=== PATIENT | female | born 1950 | race Caucasian/White ===

== ENCOUNTER 2017-09-20 09:20 | Emergency (ER) | payer MEDICARE, OTHER ==
[2017-09-20 09:49] VITALS: BP 174/76
[2017-09-20] MEDS ORDERED: Doxycycline 100 MG Cap PO ONE (10:07)
--- NOTE | 2017-09-20 10:10 | EDM.PDOC ---
ED HPI GENERAL MEDICAL PROBLEM - General Chief Complaint: Skin Complaint Stated Complaint: TICK BITE Time Seen by Provider: 09/20/17 10:00 Source of Information: Reports: Patient History Limitations: Reports: No Limitations - History of Present Illness INITIAL COMMENTS - FREE TEXT/NARRATIVE: 67-year-old female pulled a tick off of her left anterior shoulder this morning , put the tick in a bag and came in to be checked. No symptoms. 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: Musculoskeletal History: Reports: Arthritis Endocrine/Metabolic History: Reports: Diabetes, Type II - Infectious Disease History Infectious Disease History: Reports: Chicken Pox, Measles, Mumps - Past Surgical History Musculoskeletal Surgical History: Reports: None Social & Family History - Family History Family Medical History: Noncontributory - Tobacco Use Smoking Status *Q: Current Every Day Smoker Years of Tobacco use: 40 Packs/Tins Daily: 1 - Caffeine Use Caffeine Use: Reports: Coffee - Recreational Drug Use Recreational Drug Use: No ED ROS GENERAL - Review of Systems Review Of Systems: See Below Constitutional: Denies: Fever, Chills Respiratory: Denies: Shortness of Breath Cardiovascular: Denies: Chest Pain GI/Abdominal: Denies: Abdominal Pain Skin: Reports: Other (Small sore spot on the left anterior shoulder) ED EXAM, SKIN/RASH Exam: See Below Exam Limited By: No Limitations General Appearance: Alert, No Apparent Distress Respiratory/Chest: No Respiratory Distress Neurological: Alert, Oriented Psychiatric: Normal Affect, Normal Mood Skin: Warm, Dry, Other (Patient has a small round erythematous spot on the anterior left shoulder about 1 cm across.) Course - Vital Signs Last Recorded V/S: Last Vital Signs Temp 96.6 F 09/20/17 09:46 Pulse 74 09/20/17 09:46 Resp 15 09/20/17 09:46 BP 174/76 H 09/20/17 09:46 Pulse Ox 97 09/20/17 09:46 - Orders/Labs/Meds Meds: Medications Discontinued Medications Generic Name Dose Route Start Last Admin Trade Name Rachel PRN Reason Stop Dose Admin Doxycycline Hyclate 200 mg 09/20/17 10:07 09/20/17 10:12 Vibramycin PO 09/20/17 10:08 200 mg ONETIME ONE Administration - Re-Assessments/Exams Free Text/Narrative Re-Assessment/Exam: 09/20/17 10:09 Patient was given one 200 mg of oral doxycycline and reassured. She can return as needed. Departure - Departure Time of Disposition: 10:19 Disposition: Home, Self-Care 01 Condition: Good Clinical Impression: Tick bite of left shoulder Qualifiers: Encounter type: initial encounter Qualified Code(s): S40.262A - Insect bite ( nonvenomous) of left shoulder, initial encounter - Discharge Information Instructions: Tick Bite Information, Adult, [id number] Referrals: Moshe Foster MD [Primary Care Provider] - Forms: ED Department Discharge Care Plan Goals: Keep bite area clean while healing, and recheck if concerns such as fever or joint pains in the next few weeks.
== END 2017-09-20 10:20 | disposition home or self-care (01) ==
LOC: JP.ED 09:20
DX: S40.262A Insect bite (nonvenomous) of left shoulder, initial encounter (principal); F17.210 Nicotine dependence, cigarettes, uncomplicated; E11.9 Type 2 diabetes mellitus without complications; Z88.8 Allergy status to other drugs, medicaments and biological substances; W57.XXXA Bitten or stung by nonvenomous insect and other nonvenomous arthropods, initial encounter
CPT/HCPCS: 99283; A9270

== ENCOUNTER 2017-12-15 18:25 | Emergency (ER) | payer MEDICARE, OTHER ==
--- NOTE | 2017-12-15 19:25 | EDM.PDOC ---
ED HPI GENERAL MEDICAL PROBLEM - General Chief Complaint: Back Pain or Injury Stated Complaint: PAIN IN LEFT ARM AND LEFT SIDE Time Seen by Provider: 12/15/17 19:23 Source of Information: Reports: Patient, Family History Limitations: Reports: No Limitations - History of Present Illness INITIAL COMMENTS - FREE TEXT/NARRATIVE: pt woke up with pain her rt shoulder blade area and she now has pain in the epigastric area. She has eaten less but she has eaten. 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: Musculoskeletal History: Reports: Arthritis Endocrine/Metabolic History: Reports: Diabetes, Type II - Infectious Disease History Infectious Disease History: Reports: Chicken Pox, Measles, Mumps - Past Surgical History Musculoskeletal Surgical History: Reports: None Social & Family History - Family History Family Medical History: Noncontributory - Tobacco Use Smoking Status *Q: Current Every Day Smoker Years of Tobacco use: 40 Packs/Tins Daily: 1 - Caffeine Use Caffeine Use: Reports: Coffee - Recreational Drug Use Recreational Drug Use: No ED ROS GENERAL - Review of Systems Review Of Systems: See Below Constitutional: Reports: No Symptoms HEENT: Reports: No Symptoms Respiratory: Reports: No Symptoms Cardiovascular: Reports: No Symptoms, Other (chest pressure from thje pain in her stomach. ) Endocrine: Reports: No Symptoms GI/Abdominal: Reports: Abdominal Pain, Other (Pain in the upper abdman. ) : Reports: No Symptoms Musculoskeletal: Reports: No Symptoms Skin: Reports: No Symptoms ED EXAM, UPPER BACK/NECK PAIN - Physical Exam Exam: See Below Text/Narrative:: pt arrived with a history of rt shoulder and back opain this am. She then developed acute pain in the epiggastric area. She has not vomited. Her appetite is down Exam Limited By: No Limitations General Appearance: Alert, Moderate Distress Ears Exam: Normal TMs Nose Exam: Normal Inspection Throat/Mouth Exam: Normal Inspection Head Exam: Atraumatic Neck Exam: Non-Tender Cardiovascular/Respiratory: Regular Rate, Rhythm, Other ( ekg was normal. No actual chest pain. ) GI/Abdominal: Tender, Other (pt has a soft abdoman with epigastric tenderness. ) (Female) Exam: Deferred Rectal (Female) Exam: Normal Exam Back Exam: Normal Inspection Extremities: Normal Inspection Neurologic: Alert Course - Vital Signs Last Recorded V/S: Last Vital Signs Temp 36.3 C 12/15/17 18:55 Pulse 71 12/15/17 20:37 Resp 18 12/15/17 20:37 BP 167/76 H 12/15/17 20:37 Pulse Ox 100 12/15/17 20:37 - Orders/Labs/Meds Orders: Active Orders 24 hr Category Date Time Status Abdomen Ltd [US] Stat Exams 12/15/17 19:46 Taken UA W/MICROSCOPIC [URIN] Urgent Lab 12/15/17 19:38 Ordered Famotidine [Pepcid] Med 12/15/17 21:41 Once 20 mg PO ONETIME ONE Medication Orders Famotidine (Pepcid) 20 mg PO ONETIME ONE Stop: 12/15/17 21:42 Labs: Laboratory Tests 12/15/17 12/15/17 12/15/17 Range/Units 19:21 19:21 19:21 WBC 10.0 (4.5-11.0) K/uL RBC 4.57 (3.30-5.50) M/uL Hgb 13.1 (12.0-15.0) g/dL Hct 38.7 (36.0-48.0) % MCV 85 (80-98) fL MCH 29 (27-31) pg MCHC 34 (32-36) % Plt Count 309 (150-400) K/uL Neut % (Auto) 62 (36-66) % Lymph % (Auto) 27 (24-44) % Angelina % (Auto) 9 H (2-6) % Eos % (Auto) 2 (2-4) % Baso % (Auto) 1 (0-1) % Sodium 137 L (140-148) mmol/L Potassium 3.2 L (3.6-5.2) mmol/L Chloride 99 L (100-108) mmol/L Carbon Dioxide 27 (21-32) mmol/L Anion Gap 14.2 H (5.0-14.0) mmol/L BUN 12 (7-18) mg/dL Creatinine 0.7 (0.6-1.0) mg/dL Est Cr Clr Drug Dosing 61.09 mL/min Estimated GFR (MDRD) > 60 (>60) Glucose 182 H (74-106) mg/dL Calcium 9.5 (8.5-10.1) mg/dL Total Bilirubin 0.3 (0.2-1.0) mg/dL AST 15 (15-37) U/L ALT 21 (12-78) U/L Alkaline Phosphatase 77 (46-116) U/L Troponin I (0.000-0.056) ng/mL C-Reactive Protein 1.08 H (0.0-0.3) mg/dL Total Protein 7.4 (6.4-8.2) g/dL Albumin 3.3 L (3.4-5.0) g/dL Globulin 4.1 H (2.3-3.5) g/dL Albumin/Globulin Ratio 0.8 L (1.2-2.2) Lipase (73-393) U/L Urine Color Urine Appearance Urine pH (4.5-8.0) Ur Specific [place] (1.008-1.030) Urine Protein (NEGATIVE) mg/dL Urine Glucose (UA) (NEGATIVE) mg/dL Urine Ketones (NEGATIVE) mg/dL Urine Occult Blood (NEGATIVE) Urine Nitrite (NEGATIVE) Urine Bilirubin (NEGATIVE) Urine Urobilinogen (NORMAL) mg/dL Ur Leukocyte Esterase (NEGATIVE) Urine RBC (0-5) Urine WBC (0-5) Ur Epithelial Cells Amorphous Sediment Urine Bacteria Urine Mucus 12/15/17 12/15/17 Range/Units 19:21 19:38 WBC (4.5-11.0) K/uL RBC (3.30-5.50) M/uL Hgb (12.0-15.0) g/dL Hct (36.0-48.0) % MCV (80-98) fL MCH (27-31) pg MCHC (32-36) % Plt Count (150-400) K/uL Neut % (Auto) (36-66) % Lymph % (Auto) (24-44) % Angelina % (Auto) (2-6) % Eos % (Auto) (2-4) % Baso % (Auto) (0-1) % Sodium (140-148) mmol/L Potassium (3.6-5.2) mmol/L Chloride (100-108) mmol/L Carbon Dioxide (21-32) mmol/L Anion Gap (5.0-14.0) mmol/L BUN (7-18) mg/dL Creatinine (0.6-1.0) mg/dL Est Cr Clr Drug Dosing mL/min Estimated GFR (MDRD) (>60) Glucose (74-106) mg/dL Calcium (8.5-10.1) mg/dL Total Bilirubin (0.2-1.0) mg/dL AST (15-37) U/L ALT (12-78) U/L Alkaline Phosphatase (46-116) U/L Troponin I < 0.017 (0.000-0.056) ng/mL C-Reactive Protein (0.0-0.3) mg/dL Total Protein (6.4-8.2) g/dL Albumin (3.4-5.0) g/dL Globulin (2.3-3.5) g/dL Albumin/Globulin Ratio (1.2-2.2) Lipase 87 (73-393) U/L Urine Color Yellow Urine Appearance Clear Urine pH 6.0 (4.5-8.0) Ur Specific [place] 1.010 (1.008-1.030) Urine Protein Negative (NEGATIVE) mg/dL Urine Glucose (UA) Normal (NEGATIVE) mg/dL Urine Ketones Negative (NEGATIVE) mg/dL Urine Occult Blood Moderate (NEGATIVE) Urine Nitrite Negative (NEGATIVE) Urine Bilirubin Negative (NEGATIVE) Urine Urobilinogen Normal (NORMAL) mg/dL Ur Leukocyte Esterase Negative (NEGATIVE) Urine RBC 0-5 (0-5) Urine WBC 0-5 (0-5) Ur Epithelial Cells Rare Amorphous Sediment Not seen Urine Bacteria Not seen Urine Mucus Not seen Meds: Medications Generic Name Dose Route Start Last Admin Trade Name Freq PRN Reason Stop Dose Admin Famotidine 20 mg 12/15/17 21:41 Pepcid PO 12/15/17 21:42 ONETIME ONE Discontinued Medications Generic Name Dose Route Start Last Admin Trade Name Freq PRN Reason Stop Dose Admin Al Hydroxide/Mg Hydroxide 15 0 ml 12/15/17 20:37 12/15/17 20:45 ml/ Lidocaine HCl 15 ml PO 12/15/17 20:38 15 ml ONETIME ONE Administration - Re-Assessments/Exams Free Text/Narrative Re-Assessment/Exam: 12/15/17 21:45 pt was found to have alot of stones in her GB. Her Gb wall is thickened. She did respond to the GI cocktail and felt better. Departure - Departure Time of Disposition: 21:46 Disposition: Home, Self-Care 01 Condition: Fair Clinical Impression: Cholelithiasis, Gastrointestinal irritation - Discharge Information Referrals: Moshe Foster MD [Primary Care Provider] - Forms: ED Department Discharge Care Plan Goals: rtc Wednesday for a hiada scan, prilosec 20mg daily Appt with surgeon wed or of next week. - My Orders Last 24 Hours: My Active Orders 12/15/17 19:38 UA W/MICROSCOPIC [URIN] Urgent 12/15/17 19:46 Abdomen Ltd [US] Stat 12/15/17 21:41 Famotidine [Pepcid] 20 mg PO ONETIME ONE - Assessment/Plan Last 24 Hours: My Active Orders 12/15/17 19:38 UA W/MICROSCOPIC [URIN] Urgent 12/15/17 19:46 Abdomen Ltd [US] Stat 12/15/17 21:41 Famotidine [Pepcid] 20 mg PO ONETIME ONE
[2017-12-15] MEDS ORDERED: Alum Hydrox/Mag Hydrox/Simeth 15 ML, Lidocaine 2% 15 ML PO ONE ×2 (20:37)
[2017-12-15 20:38] VITALS: BP 167/76
[2017-12-15] MEDS ORDERED: Famotidine 20 MG Tab PO ONE (21:41)
== END 2017-12-15 21:58 | disposition home or self-care (01) ==
LOC: JP.ED 18:25
DX: K80.20 Calculus of gallbladder without cholecystitis without obstruction (principal); K92.89 Other specified diseases of the digestive system; E11.9 Type 2 diabetes mellitus without complications; F17.210 Nicotine dependence, cigarettes, uncomplicated; Z88.8 Allergy status to other drugs, medicaments and biological substances
CPT/HCPCS: 36415; 76705; 80053; 81001; 83690; 84484; 85025; 86140; 99284; A9270

== ENCOUNTER 2018-08-14 09:29 | Emergency (ER) | payer MEDICARE, OTHER ==
[2018-08-14 09:43] VITALS: BP 184/73
--- NOTE | 2018-08-14 10:49 | CRLCR ---
INDICATION: Trauma with pain, fall on outstretched hand. TECHNIQUE: Four views of the left wrist. COMPARISON: None FINDINGS: There is a subtle minimally displaced triquetral avulsion type fracture with no other fracture or malalignment seen. Associated soft tissue swelling is present overlying the dorsal aspect of the wrist. IMPRESSION: Acute minimally displaced triquetral avulsion-type fracture with associated soft tissue swelling overlying the dorsal wrist. Dictated by Moshe Patterson MD @ Aug 14 2018 10:42AM Signed by Dr. Moshe Patterson @ Aug 14 2018 10:47AM
--- NOTE | 2018-08-14 11:16 | EDM.PDOC ---
ED HPI GENERAL MEDICAL PROBLEM - General Chief Complaint: Upper Extremity Injury/Pain Stated Complaint: LEFT WRIST INJURY Time Seen by Provider: 08/14/18 10:05 Source of Information: Reports: Patient History Limitations: Reports: No Limitations - History of Present Illness INITIAL COMMENTS - FREE TEXT/NARRATIVE: This lady fell on her outstretched left hand just a short while ago. It hurts all over the left wrist but most intense pain is in the area of the pisiform bone. 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: Musculoskeletal History: Reports: Arthritis Endocrine/Metabolic History: Reports: Diabetes, Type II - Infectious Disease History Infectious Disease History: Reports: Chicken Pox, Measles, Mumps - Past Surgical History Head Surgeries/Procedures: Reports: None HEENT Surgical History: Reports: None Cardiovascular Surgical History: Reports: None GI Surgical History: Reports: Cholecystectomy Endocrine Surgical History: Reports: None Musculoskeletal Surgical History: Reports: None Dermatological Surgical History: Reports: None Social & Family History - Family History Family Medical History: Noncontributory - Tobacco Use Smoking Status *Q: Current Every Day Smoker Years of Tobacco use: 40 Packs/Tins Daily: 1 Used Tobacco, but Quit: No Second Hand Smoke Exposure: No - Caffeine Use Caffeine Use: Reports: Coffee - Alcohol Use Days Per Week of Alcohol Use: 1 Number of Drinks Per Day: 2 Total Drinks Per Week: 2 - Recreational Drug Use Recreational Drug Use: No Review of Systems - Review of Systems Review Of Systems: ROS reveals no pertinent complaints other than HPI. ED EXAM, GENERAL - Physical Exam Exam: See Below Exam Limited By: No Limitations General Appearance: Alert, WD/WN, Mild Distress Extremities: Other (Generalized swelling of the wrist. Full range of motion of the fingers limited range of motion of the wrist and she does have point tenderness over the pisiform.) Course - Vital Signs Last Recorded V/S: Last Vital Signs Temp 35.8 C 08/14/18 09:44 Pulse 81 08/14/18 09:44 Resp 16 08/14/18 09:44 BP 184/73 H 08/14/18 09:44 Pulse Ox 95 08/14/18 09:44 - Radiology Interpretation Free Text/Narrative:: X-ray shows a small minimally displaced avulsion type fracture of the triquetrum Departure - Departure Time of Disposition: 11:13 Disposition: Home, Self-Care 01 Condition: Fair Clinical Impression: Fracture of triquetrum of left wrist - Discharge Information Referrals: Moshe Foster MD [Primary Care Provider] - Additional Instructions: This fracture is what is called an avulsion fracture it's where the tendon pulled loose and takes a little tiny piece of bone with it. It is similar to a sprain. It will need to be in a cast but right now until you see the orthopedist next week a splint will be just fine. You should keep it elevated as much as possible and apply ice. If needed you may use the Narco 5/325 (12 tablets) one or 2 every 4 hours. Each tablet contains 325 mg of Tylenol. If you decide to take some regular Tylenol along with this you should limit yourself to a total of 4000 mg per day of Tylenol. The Narco contains hydrocodone which is some mild narcotic. It can cause sedation that could lead to falls it could impair driving or operating machinery. It can be addictive if abused
== END 2018-08-14 11:32 | disposition home or self-care (01) ==
LOC: JP.ED 09:29
DX: S62.112A Displaced fracture of triquetrum [cuneiform] bone, left wrist, initial encounter for closed fracture (principal); F17.210 Nicotine dependence, cigarettes, uncomplicated; V91.29XA Fall due to collision between unspecified watercraft and other watercraft or other object, initial encounter; Z88.8 Allergy status to other drugs, medicaments and biological substances
CPT/HCPCS: 73110-LT; 99283; 99283-25

== ENCOUNTER 2020-08-05 18:33 | Emergency (ER) | payer MEDICARE, OTHER ==
[2020-08-05] MEDS ORDERED: amLODIPine 5 MG Tab PO ONE (19:20)
--- NOTE | 2020-08-05 19:29 | EDM.PDOC ---
ED HPI GENERAL MEDICAL PROBLEM - General Chief Complaint: Cardiovascular Problem Stated Complaint: HIGH BLOOD PRESSURE Time Seen by Provider: 08/05/20 19:03 Source of Information: Reports: Patient History Limitations: Reports: No Limitations - History of Present Illness INITIAL COMMENTS - FREE TEXT/NARRATIVE: Patient presents to the ER after attempting to be seen at clinic this afternoon for left neck tenderness/lymph node feeling swollen. She also reports some left ear discomfort and very mild headache. She rates SAMUELS 1/10, left sided which has been present all day. currently only a vague sensation. She states she took ibuprofen 800mg this morning and then around 1400 took another 200mg. she denies any other associated symptoms--no F/C, N/V/D, LH/dizzy, SOB/difficulty breathing, no sore throat/difficulty swallowing or concerns otherwise. She states that her stomach feels a bit off but is very nondescript in this. no known sick contacts. She states she has not had BP concerns before, was seen in clinic last week and it was noted to be slightly elevated. she does not do home BP monitoring. She was sent from clinic due to systolic being 200+ PMH--DM2, HLP Meds--metformin, lovastatin, MVI, CoQ-10, zinc, vit D NKDA Tob--1ppd EtOH--occassional Drugs--denies --repeat BP-215/92 at time of my exam Headache Pain Score (Numeric/FACES): 1 - Related Data Allergies Allergy/AdvReac Type Severity Reaction Status Date / Time metformin Allergy Joint Pain Verified 08/05/20 18:52 Home Meds: Home Meds Lovastatin [Mevacor] 20 mg PO BEDTIME 08/14/18 [History] Past Medical History HEENT History: Reports: Cataract, Impaired Vision Cardiovascular History: Reports: High Cholesterol Respiratory History: Reports: None Gastrointestinal History: Reports: Colon Polyp Genitourinary History: Reports: None 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: Musculoskeletal History: Reports: Arthritis, Fracture Neurological History: Reports: None Psychiatric History: Reports: None Endocrine/Metabolic History: Reports: Diabetes, Type II Hematologic History: Reports: None Immunologic History: Reports: None Oncologic (Cancer) History: Reports: None Dermatologic History: Reports: None - Infectious Disease History Infectious Disease History: Reports: Chicken Pox, Measles, Mumps - Past Surgical History Head Surgeries/Procedures: Reports: None HEENT Surgical History: Reports: None, Cataract Surgery, Eye Surgery Other HEENT Surgeries/Procedures: ocular implants Cardiovascular Surgical History: Reports: None GI Surgical History: Reports: Cholecystectomy Female Surgical History: Reports: Hysterectomy Endocrine Surgical History: Reports: None Musculoskeletal Surgical History: Reports: None, Other (See Below) Other Musculoskeletal Surgeries/Procedures:: left wrist FX Dermatological Surgical History: Reports: None Social & Family History - Family History Family Medical History: No Pertinent Family History - Tobacco Use Tobacco Use Status *Q: Current Every Day Tobacco User Years of Tobacco use: 50 Packs/Tins Daily: 1 - Caffeine Use Caffeine Use: Reports: Coffee - Recreational Drug Use Recreational Drug Use: No ED ROS GENERAL - Review of Systems Review Of Systems: See Below Constitutional: Reports: No Symptoms HEENT: Reports: Ear Pain (left ear pressure sensation--vague in nature), Throat Pain Respiratory: Reports: No Symptoms Cardiovascular: Reports: No Symptoms Endocrine: Reports: No Symptoms GI/Abdominal: Reports: Other (states stomach feels "off"). Denies: Abdominal Pain, Diarrhea, Nausea, Vomiting : Reports: No Symptoms Musculoskeletal: Reports: No Symptoms Skin: Reports: No Symptoms Neurological: Reports: Headache. Denies: Dizziness, Numbness, Syncope, Tremors, Trouble Speaking, Weakness, Change in Speech, Gait Disturbance Psychiatric: Reports: No Symptoms Hematologic/Lymphatic: Reports: Swollen Glands (left anterior neck just under jaw-line) Immunologic: Reports: No Symptoms ED EXAM, GENERAL - Physical Exam Exam: See Below Exam Limited By: No Limitations General Appearance: Alert, WD/WN, No Apparent Distress Eye Exam: Bilateral Eye: EOMI, Normal Inspection, PERRL Ears: Normal External Exam, Normal Canal, Hearing Grossly Normal, Normal TMs Nose: Normal Inspection, Normal Mucosa Throat/Mouth: Normal Inspection, Normal Lips, Normal Oropharynx, Normal Voice, No Airway Compromise Head: Atraumatic, Normocephalic Neck: Normal Inspection, Supple, Full Range of Motion, Lymphadenopathy (L). No: Lymphadenopathy (R), Thyromegaly Respiratory/Chest: No Respiratory Distress, Lungs Clear, Normal Breath Sounds, No Accessory Muscle Use, Chest Non-Tender Cardiovascular: Normal Peripheral Pulses, Regular Rate, Rhythm, No Edema, No Murmur Peripheral Pulses: 2+: Radial (L), Radial (R) GI/Abdominal: Normal Bowel Sounds, Soft, Non-Tender, No Distention (Female) Exam: Deferred Rectal (Female) Exam: Deferred Back Exam: Normal Inspection Extremities: Normal Inspection, No Pedal Edema, Normal Capillary Refill Neurological: Alert, Oriented, CN II-XII Intact, Normal Cognition, No Motor/Sensory Deficits Psychiatric: Normal Affect, Normal Mood Skin Exam: Warm, Dry, Intact, Normal Color Course - Vital Signs Text/Narrative:: 1928--d/w patient and daughter at bedside my exam findings and offered labs to include strep screen. she has declined. d/w her that I will give initial dose of BP medication (amilodipine) in the ER tonight, watch for BP improvement and d/c with prescription of LIN-I/lisinopril as this will treat her HTN as well as provide renal protection recommendation as per current guidelines for DM2 management. she verbalized understanding/agreement with plan of care at this time 2049--after 5mg norvasc BP-180/79; patient remains symptom free at this time on recheck. d/w her home care as well as new start medications. ready for d/c Last Recorded V/S: Last Vital Signs Temp 98.6 F 08/05/20 19:31 Pulse 76 08/05/20 20:14 Resp 15 08/05/20 18:53 BP 192/78 H 08/05/20 20:14 Pulse Ox 96 08/05/20 18:53 - Orders/Labs/Meds Meds: Medications Discontinued Medications Generic Name Dose Route Start Last Admin Trade Name Chuchoq PRN Reason Stop Dose Admin Amlodipine Besylate 5 mg 08/05/20 19:20 08/05/20 19:31 Amlodipine 5 Mg Tab PO 08/05/20 19:21 5 mg ONETIME ONE Administration Departure - Departure Time of Disposition: 20:51 Disposition: Home, Self-Care 01 Condition: Good Clinical Impression: Hypertension, Diabetes type 2, controlled, Cervical adenopathy Instructions: Type 2 Diabetes Mellitus, Diagnosis, Adult, Lymphadenopathy, Hypertension, Adult, [id number], Managing Your Hypertension Referrals: Moshe Foster MD [Primary Care Provider] - Forms: ED Department Discharge Additional Instructions: You have been given a prescription for Lisinopril--start this medication tomorrow As discussed it is recommended that you start a daily blood pressure log--take at least 2-times a day, varied times, sit for 15 minutes with arm resting on table at level of heart, do not smoke 30 minutes prior to checking your blood pressure. write all readings down and take to your primary care provider/family doctor for review Schedule ER follow up care by Wednesday Goal BP reading is <140/90 Any further concerns may return to the ER or contact your family doctor Sepsis Event Note (ED) - Evaluation Sepsis Screening Result: No Definite Risk - Focused Exam Vital Signs: Vital Signs Temp Pulse Resp BP BP Pulse Ox 08/05/20 20:14 76 192/78 H 08/05/20 19:31 98.6 F 214/83 H 08/05/20 19:15 214/83 H 08/05/20 18:53 74 15 211/73 H 96
[2020-08-05 20:14] VITALS: PULSE 76
[2020-08-05 21:03] VITALS: BP 180/79
== END 2020-08-05 21:03 | disposition home or self-care (01) ==
LOC: JP.ED 18:33
DX: M54.12 Radiculopathy, cervical region (principal); E11.9 Type 2 diabetes mellitus without complications; I10 Essential (primary) hypertension; E78.5 Hyperlipidemia, unspecified; Z79.899 Other long term (current) drug therapy; Z88.8 Allergy status to other drugs, medicaments and biological substances; Z72.0 Tobacco use
CPT/HCPCS: 99283; A9270

== ENCOUNTER 2023-05-11 12:39 | Observation (INO) | payer MEDICARE, OTHER ==
[2023-05-11] MEDS ORDERED: Sodium Chloride 0.9% 10 ML Syringe FLUSH PRN ×2 (12:55→19:24)
[2023-05-11 13:08] LABS: BASOPHILS ABSOLUTE AUTO 0.08 K/uL (0.00-0.10); BASOPHILS PERCENT AUTO 0.9 % (0.1-1.3); EOSINOPHILS ABSOLUTE AUTO 0.24 K/uL (0.00-0.40); EOSINOPHILS PERCENT AUTO 2.7 % (0.0-5.4); HEMATOCRIT 39.3 % (34.3-46.0); HEMOGLOBIN 13.6 g/dL (11.2-15.5); IMMATURE GRAN ABSOLUTE AUTO 0.05 K/uL (0.00-0.23); IMMATURE GRAN PERCENT AUTO 0.6 % (0.0-0.7); LYMPHOCYTES PERCENT AUTO 18.3 % (11.4-47.7); MEAN CORPUSCULAR HEMOGLOBIN 29.3 pg (31.6-35.5); MEAN CORPUSCULAR HGB CONC 34.6 g/dL (31.6-35.5); MEAN CORPUSCULAR VOLUME 84.7 fL (81.4-99.0); MONOCYTES ABSOLUTE AUTO 0.59 K/uL (0.20-0.90); MONOCYTES PERCENT AUTO 6.7 % (3.3-12.6); NEUTROPHILS ABSOLUTE AUTO 6.19 K/uL (1.0-7.6); NEUTROPHILS PERCENT AUTO 70.8 % (40.0-78.1); PLATELET COUNT,PLT 363 K/uL (130-375); RED BLOOD CELL COUNT 4.64 M/uL (3.77-5.24); WHITE BLOOD CELL COUNT,WBC 8.8 K/uL (3.2-11.0)
[2023-05-11] MEDS ORDERED: Enalaprilat 1.25 MG/ML SDV IVPUSH ONE (13:13)
[2023-05-11 13:27] LABS: PROTHROMBIN TIME 10.2 sec (9.2-10.6); PTT,PARTIAL THROMBOPLSTIN TIME 27.7 sec (21.8-27.3)
[2023-05-11] MEDS ORDERED: Sodium Chloride 0.9% 10 ML Syringe FLUSH ONE (13:34)
[2023-05-11] MEDS ORDERED: Iopamidol 755 Mg/ML 100 ML Bottle IV SCH (13:45)
[2023-05-11] MEDS ORDERED: Sodium Chloride 0.9% 100 ML IV SCH (13:45)
[2023-05-11 13:48] LABS: A/G RATIO 0.8 (1.2-2.2); ALANINE AMINOTRANSFERASE,ALT 19 U/L (12-78); ALBUMIN 3.5 g/dL (3.4-5.0); ALKALINE PHOSPHATASE 73 U/L (46-116); ASPARTATE AMNIOTRANSFERASE,AST 18 U/L (15-37); BILIRUBIN TOTAL 0.4 mg/dL (0.2-1.0); BLOOD UREA NITROGEN,BUN 10 mg/dL (7-18); CALCIUM 8.7 mg/dL (8.5-10.1); CARBON DIOXIDE,CO2 26 mmol/L (21-32); CHLORIDE,CL 90 mmol/L (100-108); CREATININE 0.7 mg/dL (0.6-1.0); ESTIMATED GFR 92 mL/min (>60); GLUCOSE RANDOM 117 mg/dL (74-106); POTASSIUM,K 3.6 mmol/L (3.6-5.2); PROTEIN TOTAL,TP 7.7 g/dL (6.4-8.2); TROPONIN I HIGH SENSITIVITY 15.1 pg/mL (<=60.3)
[2023-05-11] MEDS ORDERED: Potassium Chloride 20 MEQ Tab.ER PO ONE (16:40)
[2023-05-11] MEDS ORDERED: Sodium Chloride 0.9% 1,000 ML IV SCH (16:45)
[2023-05-11 17:34] LABS: ANION GAP 19.6 mmol/L (5.0-14.0); SODIUM,NA 132 mmol/L (140-148)
[2023-05-11] MEDS ORDERED: Potassium Chloride 20 MEQ Tab.ER ONE (19:01)
[2023-05-11 19:09] LABS: CORONAVIRUS COVID-19 NAA NEGATIVE (NEGATIVE); INFLUENZA A NAA NEGATIVE (NEGATIVE); INFLUENZA B NAA NEGATIVE (NEGATIVE); RESPIRATORY SYNCYTIAL VIR NAA NEGATIVE (NEGATIVE)
[2023-05-11] MEDS ORDERED: Glucose Gel 15 GM in 37.5 GM Tube PO PRN (19:24)
[2023-05-11] MEDS ORDERED: Acetaminophen 325 MG Tab PO PRN (19:24)
[2023-05-11] MEDS ORDERED: Enoxaparin 40 MG/0.4 ML Syringe SUBCUT SCH (19:24)
[2023-05-11] MEDS ORDERED: Polyethylene Glycol 3350 Powder 17 GM Packet PO PRN (19:24)
[2023-05-11] MEDS ORDERED: Ondansetron 4 MG/2 ML SDV IV PRN (19:24)
[2023-05-11] MEDS ORDERED: 50% Dextrose in Water 50 ML Syringe IV PRN (19:24)
[2023-05-11] MEDS: Clopidogrel 75 MG Tab PO SCH (19:33)
[2023-05-11] MEDS: Insulin Lispro 100 Unit/ML 3 ML KwikPen SUBCUT SCH ×2 (20:58→20:59)
[2023-05-11] MEDS ORDERED: atorvaSTATin 20 MG Tab PO SCH (21:00)
[2023-05-12 05:11] LABS: HEMATOCRIT 38.6 % (34.3-46.0); MEAN CORPUSCULAR HEMOGLOBIN 29.1 pg (31.6-35.5); MEAN CORPUSCULAR HGB CONC 33.7 g/dL (31.6-35.5); MEAN CORPUSCULAR VOLUME 86.5 fL (81.4-99.0); RED BLOOD CELL COUNT 4.46 M/uL (3.77-5.24); WHITE BLOOD CELL COUNT,WBC 7.8 K/uL (3.2-11.0)
[2023-05-12 05:34] LABS: CALCIUM 8.7 mg/dL (8.5-10.1); CREATININE 0.6 mg/dL (0.6-1.0); EST CRCL DRUG DOSING (CG) 64.03 mL/min; MAGNESIUM 2.1 mg/dL (1.8-2.4); POTASSIUM,K 4.2 mmol/L (3.6-5.2)
[2023-05-12 05:35] LABS: ANION GAP 13.2 mmol/L (5.0-14.0)
[2023-05-12] MEDS: Insulin Lispro 100 Unit/ML 3 ML KwikPen SUBCUT SCH ×2 (07:36→11:22)
[2023-05-12] MEDS: Clopidogrel 75 MG Tab PO SCH (08:09)
[2023-05-12] MEDS ORDERED: Aspirin 81 MG Tab.EC PO SCH (09:00)
[2023-05-12 12:07] VITALS: PULSE 78
[2023-05-12 12:25] VITALS: BP 130/66
[2023-05-12] MEDS ORDERED: Enoxaparin 40 MG/0.4 ML Syringe SUBCUT SCH (17:00)
== END 2023-05-12 13:00 | disposition home or self-care (01) ==
LOC: JP.ED 12:39 → JP.MS 18:11
PROVIDERS: ADMIT Hospitalist; ATTEND Hospitalist
DX: G45.9 Transient cerebral ischemic attack, unspecified (principal); E11.9 Type 2 diabetes mellitus without complications; E78.00 Pure hypercholesterolemia, unspecified; F17.210 Nicotine dependence, cigarettes, uncomplicated; Z20.822 Contact with and (suspected) exposure to COVID-19; Z79.82 Long term (current) use of aspirin; Z79.02 Long term (current) use of antithrombotics/antiplatelets; Z79.84 Long term (current) use of oral hypoglycemic drugs; Z79.899 Other long term (current) drug therapy
CPT/HCPCS: 0241U; 36415; 70450; 70450-26; 70496; 70496-26; 70498; 70498-26; 80048; 80053; 82947; 83735; 84295; 84484; 85025; 85027; 85610; 85730; 93005; 93010; 93306; 96372; 97161-GP; 99222; 99238; 99285; A9270-GY; G0378; J1650; J1815; J3490; Q9967

== ENCOUNTER 2023-05-12 21:59 | Emergency (ER) | payer MEDICARE, OTHER ==
[2023-05-12] MEDS ORDERED: Iopamidol 755 Mg/ML 100 ML Bottle IV SCH (22:30)
[2023-05-12] MEDS ORDERED: Sodium Chloride 0.9% 100 ML IV SCH (22:30)
[2023-05-12] MEDS ORDERED: Sodium Chloride 0.9% 10 ML Syringe FLUSH PRN (22:39)
[2023-05-13 00:16] VITALS: BP 121/50; PULSE 79
== END 2023-05-13 00:28 | disposition home or self-care (01) ==
LOC: JP.ED 21:59
DX: M79.602 Pain in left arm (principal)
CPT/HCPCS: 70450; 70496; 70498; 82947; 99284; J3490; Q9967

== ENCOUNTER 2023-05-15 09:55 | Emergency (ER) | payer MEDICARE, OTHER ==
[2023-05-15] MEDS ORDERED: amLODIPine 5 MG Tab PO ONE (10:58)
[2023-05-15 11:02] VITALS: BP 164/69
[2023-05-15 11:03] VITALS: PULSE 90
== END 2023-05-15 11:53 | disposition home or self-care (01) ==
LOC: JP.ED 09:55
DX: G56.92 Unspecified mononeuropathy of left upper limb (principal); D15.1 Benign neoplasm of heart; G45.9 Transient cerebral ischemic attack, unspecified; E11.9 Type 2 diabetes mellitus without complications; I10 Essential (primary) hypertension; E78.00 Pure hypercholesterolemia, unspecified; M19.90 Unspecified osteoarthritis, unspecified site; F17.210 Nicotine dependence, cigarettes, uncomplicated; Z79.899 Other long term (current) drug therapy; Z79.84 Long term (current) use of oral hypoglycemic drugs; Z79.82 Long term (current) use of aspirin
CPT/HCPCS: 99283; 99284; A9270-GY

== ENCOUNTER 2023-06-07 16:35 | Emergency (ER) | payer MEDICARE, OTHER ==
[~2023-06-07 16:35] MED LIST: Potassium Chloride 20 MEQ Tab.ER PO SCH
[2023-06-07] MEDS: Potassium Chloride 20 MEQ Tab.ER PO ONE (17:20)
[2023-06-07 17:34] VITALS: BP 159/58; PULSE 85
[2023-06-07] MEDS ORDERED: Potassium Chloride 20 MEQ Tab.ER PO ONE (18:03)
== END 2023-06-07 17:55 | disposition home or self-care (01) ==
LOC: JP.ED 16:35
DX: E87.6 Hypokalemia (principal); E78.00 Pure hypercholesterolemia, unspecified; E11.9 Type 2 diabetes mellitus without complications; M13.80 Other specified arthritis, unspecified site; Z79.84 Long term (current) use of oral hypoglycemic drugs; Z79.82 Long term (current) use of aspirin; Z79.899 Other long term (current) drug therapy
CPT/HCPCS: 99284; A9270

== ENCOUNTER 2023-11-08 13:26 | Inpatient (IN) | payer MEDICARE, OTHER ==
[2023-11-08] MEDS: Sodium Chloride 0.9% 10 ML Syringe FLUSH ONE (14:34)
[2023-11-08] MEDS: Sodium Chloride 0.9% 80 ML IV SCH (14:34)
[2023-11-08] MEDS: Iopamidol 612 MG/ML 100 ML Bottle IV PRN (14:34)
[2023-11-08] MEDS ORDERED: oxyCODONE 5 MG Tab PO PRN (16:27)
[2023-11-08] MEDS ORDERED: Polyethylene Glycol 3350 Powder 17 GM Packet PO PRN (16:27)
[2023-11-08] MEDS ORDERED: Sodium Chloride 0.9% 10 ML Syringe FLUSH PRN (16:27)
[2023-11-08] MEDS ORDERED: Ondansetron 4 MG/2 ML SDV IV PRN (16:27)
[2023-11-08] MEDS ORDERED: Piperacillin/Tazobactam 4.5 GM in Sodium Chloride 0.9% 100 ML IV ONE (16:34)
[2023-11-08] MEDS ORDERED: Piperacillin/Tazobactam 4.5 GM in Sodium Chloride 0.9% 100 ML IV SCH (17:00)
[2023-11-08] MEDS ORDERED: Vancomycin 1 GM SDV IV SCH (17:00)
[2023-11-08] MEDS: Sodium Chloride 0.9% 1,000 ML IV SCH (18:02)
[2023-11-08] MEDS: Enoxaparin 40 MG/0.4 ML Syringe SUBCUT SCH (18:03)
[2023-11-08] MEDS: Potassium Chloride 20 MEQ Tab.ER PO ONE (18:05)
[2023-11-08] MEDS: Potassium Chloride 10 MEQ in Premix Bag 1 BAG IV SCH (18:08)
[2023-11-08] MEDS: Pantoprazole 40 MG Vial IVPUSH SCH (18:10)
[2023-11-08] MEDS ORDERED: Sodium Phosphate,Monobasic/Sodium Phosphate,Dibasic Enema 133 ML Bottle RECTAL PRN (18:12)
[2023-11-08] MEDS ORDERED: 50% Dextrose in Water 50 ML Syringe IV PRN (18:12)
[2023-11-08] MEDS ORDERED: Glucose Gel 15 GM in 37.5 GM Tube PO PRN (18:12)
[2023-11-08] MEDS: Piperacillin/Tazobactam/Dext 4.5 GM in Premix Bag 1 BAG IV ONE (18:19)
[2023-11-08 20:37] LABS: BILIRUBIN,URINE NEGATIVE (NEGATIVE); COLOR,URINE YELLOW (YELLOW); GLUCOSE,URINE 100 mg/dL (NEGATIVE); KETONES,URINE TRACE mg/dL (NEGATIVE); LEUKOCYTE ESTERASE,URINE NEGATIVE (NEGATIVE); NITRITE,URINE POSITIVE (NEGATIVE); OCCULT BLOOD,URINE MODERATE (NEGATIVE); PROTEIN,URINE 100 mg/dL (NEGATIVE)
[2023-11-08 20:42] LABS: APPEARANCE,URINE SLIGHTLY CLOUDY (CLEAR)
[2023-11-08 20:43] LABS: AMORPHOUS SEDIMENT,URINE NOT SEEN; BACTERIA,URINE MANY; EPITHELIAL CELLS,URINE FEW; MUCUS,URINE NOT SEEN
[2023-11-08] MEDS: Bisacodyl 10 MG Supp RECTAL ONE (20:53)
[2023-11-08] MEDS: Polyethylene Glycol 3350 Powder 17 GM Packet PO ONE (21:12)
[2023-11-08] MEDS ORDERED: Polyethylene Glycol 3350 Powder 17 GM Packet PO ONE (21:15)
[2023-11-08] MEDS: Insulin Lispro 100 Unit/ML 3 ML KwikPen SUBCUT SCH (21:17)
[2023-11-08] MEDS: Metoprolol Tartrate 50 MG Tab PO ONE (21:26)
[2023-11-08] MEDS: Piperacillin/Tazobactam/Dext 4.5 GM in Premix Bag 1 BAG IV SCH (23:44)
[2023-11-09 05:37] LABS: HEMATOCRIT 30.7 % (34.3-46.0); HEMOGLOBIN 10.9 g/dL (11.2-15.5); MEAN CORPUSCULAR HEMOGLOBIN 27.3 pg (31.6-35.5); MEAN CORPUSCULAR HGB CONC 35.5 g/dL (31.6-35.5); MEAN CORPUSCULAR VOLUME 76.9 fL (81.4-99.0); PLATELET COUNT,PLT 299 K/uL (130-375); RED BLOOD CELL COUNT 3.99 M/uL (3.77-5.24); WHITE BLOOD CELL COUNT,WBC 23.7 K/uL (3.2-11.0)
[2023-11-09 06:01] LABS: A/G RATIO 0.4 (1.2-2.2); ALANINE AMINOTRANSFERASE,ALT 24 U/L (12-78); ALKALINE PHOSPHATASE 96 U/L (46-116); ASPARTATE AMNIOTRANSFERASE,AST 26 U/L (15-37); BILIRUBIN TOTAL 0.8 mg/dL (0.2-1.0); BLOOD UREA NITROGEN,BUN 14 mg/dL (7-18); CALCIUM 8.1 mg/dL (8.5-10.1); CARBON DIOXIDE,CO2 25 mmol/L (21-32); CHLORIDE,CL 91 mmol/L (100-108); EST CRCL DRUG DOSING (CG) 38.37 mL/min; ESTIMATED GFR 60 mL/min (>60); GLUCOSE RANDOM 153 mg/dL (74-106); POTASSIUM,K 3.3 mmol/L (3.6-5.2); PROTEIN TOTAL,TP 6.5 g/dL (6.4-8.2); SODIUM,NA 128 mmol/L (140-148); VANCOMYCIN RANDOM 12.5 ug/mL (0.0-50.0)
[2023-11-09 06:12] LABS: ANION GAP 15.3 mmol/L (5.0-14.0)
[2023-11-09 06:25] LABS: EOSINOPHILS ABSOLUTE MAN 0.24 K/uL (0.00-0.40); EOSINOPHILS PERCENT MAN 1 % (2-4); LYMPHOCYTES ABSOLUTE MAN 2.37 K/uL (0.8-3.3); LYMPHOCYTES PERCENT MAN 10 % (24-44); METAMYELOCYTE ABSOLUTE MAN 0.47 K/uL; METAMYELOCYTE PERCENT MAN 2 %; MONOCYTES ABSOLUTE MAN 1.66 K/uL (0.20-0.90); MONOCYTES PERCENT MAN 7 % (2-6); MYELOCYTE ABSOLUTE MAN 0.47; MYELOCYTE PERCENT MAN 2 %; NEUTROPHILS ABSOLUTE MAN 18.49 K/uL (1.0-7.6); SEG NEUTROPHILS PERCENT MAN 78 % (36-66)
[2023-11-09] MEDS: cefTRIAXone 2 GM in Sodium Chloride 0.9% 50 ML IV SCH (10:06)
[2023-11-09] MEDS: Magnesium Oxide 400 MG Tab PO SCH (13:02)
[2023-11-09] MEDS: Aspirin 81 MG Tab.EC PO SCH (13:02)
[2023-11-09] MEDS: atorvaSTATin 20 MG Tab PO SCH (13:02)
[2023-11-09] MEDS: Clopidogrel 75 MG Tab PO SCH (13:02)
[2023-11-09] MEDS: Metoprolol Tartrate 50 MG Tab PO SCH (13:03)
[2023-11-09] MEDS: amLODIPine 5 MG Tab PO SCH (13:03)
[2023-11-09] MEDS: Potassium Chloride 20 MEQ Tab.ER PO ONE ×2 (13:08→16:36)
[2023-11-09] MEDS: Pantoprazole 40 MG Tab.CR PO SCH (16:37)
[2023-11-10 05:07] LABS: HEMATOCRIT 30.2 % (34.3-46.0); HEMOGLOBIN 10.8 g/dL (11.2-15.5); MEAN CORPUSCULAR HEMOGLOBIN 27.8 pg (31.6-35.5); MEAN CORPUSCULAR HGB CONC 35.8 g/dL (31.6-35.5); MEAN CORPUSCULAR VOLUME 77.6 fL (81.4-99.0); RED BLOOD CELL COUNT 3.89 M/uL (3.77-5.24); WHITE BLOOD CELL COUNT,WBC 22.3 K/uL (3.2-11.0)
[2023-11-10 05:23] LABS: CALCIUM 8.2 mg/dL (8.5-10.1); EST CRCL DRUG DOSING (CG) 38.37 mL/min
[2023-11-10] MEDS: Potassium Chloride 20 MEQ Tab.ER PO ONE ×2 (09:01→16:22)
[2023-11-11 05:29] LABS: HEMATOCRIT 28.8 % (34.3-46.0); HEMOGLOBIN 10.1 g/dL (11.2-15.5); MEAN CORPUSCULAR HEMOGLOBIN 27.3 pg (31.6-35.5); MEAN CORPUSCULAR HGB CONC 35.1 g/dL (31.6-35.5); MEAN CORPUSCULAR VOLUME 77.8 fL (81.4-99.0); RED BLOOD CELL COUNT 3.7 M/uL (3.77-5.24); WHITE BLOOD CELL COUNT,WBC 22.9 K/uL (3.2-11.0)
[2023-11-11 05:47] LABS: CALCIUM 8.5 mg/dL (8.5-10.1); EST CRCL DRUG DOSING (CG) 38.37 mL/min; POTASSIUM,K 4.2 mmol/L (3.6-5.2)
[2023-11-11 05:49] LABS: ANION GAP 15.2 mmol/L (5.0-14.0)
[2023-11-11] MEDS: Sodium Chloride 0.9% 100 ML IV ONE (12:06)
[2023-11-11] MEDS: Sodium Chloride 0.9% 10 ML Syringe FLUSH ONE (12:06)
[2023-11-11] MEDS: Iopamidol 612 MG/ML 100 ML Bottle IV ONE (12:06)
[2023-11-11] MEDS: Piperacillin/Tazobactam/Dext 4.5 GM in Premix Bag 1 BAG IV ONE (14:28)
[2023-11-11] MEDS: Piperacillin/Tazobactam/Dext 4.5 GM in Premix Bag 1 BAG IV SCH (17:01)
[2023-11-12 07:50] LABS: CALCIUM 8.6 mg/dL (8.5-10.1); CREATININE 1.1 mg/dL (0.6-1.0); EST CRCL DRUG DOSING (CG) 34.88 mL/min
[2023-11-12 13:36] LABS: HEMATOCRIT 29.1 % (34.3-46.0); HEMOGLOBIN 10.3 g/dL (11.2-15.5); MEAN CORPUSCULAR HEMOGLOBIN 27.7 pg (31.6-35.5); MEAN CORPUSCULAR HGB CONC 35.4 g/dL (31.6-35.5); MEAN CORPUSCULAR VOLUME 78.2 fL (81.4-99.0); RED BLOOD CELL COUNT 3.72 M/uL (3.77-5.24); WHITE BLOOD CELL COUNT,WBC 23.4 K/uL (3.2-11.0)
[2023-11-12] MEDS: Acetaminophen 325 MG Tab PO PRN (21:21)
[2023-11-13 05:05] LABS: HEMOGLOBIN 10.8 g/dL (11.2-15.5); MEAN CORPUSCULAR HEMOGLOBIN 27.4 pg (31.6-35.5); MEAN CORPUSCULAR HGB CONC 34.8 g/dL (31.6-35.5); MEAN CORPUSCULAR VOLUME 78.7 fL (81.4-99.0); RED BLOOD CELL COUNT 3.94 M/uL (3.77-5.24)
[2023-11-13 05:22] LABS: CALCIUM 8.8 mg/dL (8.5-10.1); CREATININE 1.1 mg/dL (0.6-1.0); EST CRCL DRUG DOSING (CG) 34.88 mL/min; POTASSIUM,K 4.2 mmol/L (3.6-5.2)
[2023-11-13 05:24] LABS: ANION GAP 16.2 mmol/L (5.0-14.0)
[2023-11-13 11:49] VITALS: BP 126/60; PULSE 80
== END 2023-11-13 13:10 | disposition home or self-care (01) | DRG 690 ==
LOC: JP.CT 13:26 → JP.MS 16:05 → OBSVTOIN 11-09 12:02
PROVIDERS: ADMIT Hospitalist; ATTEND Hospitalist
DX: N10 Acute pyelonephritis (principal); D72.829 Elevated white blood cell count, unspecified; E78.00 Pure hypercholesterolemia, unspecified; M19.90 Unspecified osteoarthritis, unspecified site; E11.9 Type 2 diabetes mellitus without complications; K59.00 Constipation, unspecified; I25.10 Atherosclerotic heart disease of native coronary artery without angina pectoris; I10 Essential (primary) hypertension; E87.6 Hypokalemia; H54.7 Unspecified visual loss; Z79.82 Long term (current) use of aspirin; Z79.84 Long term (current) use of oral hypoglycemic drugs; Z79.02 Long term (current) use of antithrombotics/antiplatelets; Z79.899 Other long term (current) drug therapy; Z86.010 Personal history of colon polyps; Z87.01 Personal history of pneumonia (recurrent); Z86.73 Personal history of transient ischemic attack (TIA), and cerebral infarction without residual deficits; Z98.890 Other specified postprocedural states; Z87.81 Personal history of (healed) traumatic fracture; Z90.49 Acquired absence of other specified parts of digestive tract; Z90.710 Acquired absence of both cervix and uterus; Z98.49 Cataract extraction status, unspecified eye; Z87.891 Personal history of nicotine dependence
CPT/HCPCS: 36415; 71046; 71260; 74177; 80048; 80053; 80202; 81001; 82947; 84145; 85025; 85027; 86140; 87040; 87086; 87088; 87186; A9270-GY; J0696; J1650; J1815; J2470; J2543; J3370; J3480; J3490; J7030; J7050; Q9967

== ENCOUNTER 2023-12-25 22:08 | Emergency (ER) | payer MEDICARE, OTHER ==
[2023-12-25 23:36] LABS: HEMATOCRIT 25.6 % (34.3-46.0); HEMOGLOBIN 8.7 g/dL (11.2-15.5); MEAN CORPUSCULAR HEMOGLOBIN 26.4 pg (31.6-35.5); MEAN CORPUSCULAR VOLUME 77.8 fL (81.4-99.0); PLATELET COUNT,PLT 375 K/uL (130-375); RED BLOOD CELL COUNT 3.29 M/uL (3.77-5.24); WHITE BLOOD CELL COUNT,WBC 16.4 K/uL (3.2-11.0)
[2023-12-25] MEDS: Sodium Chloride 0.9% 1,000 ML IV SCH (23:43)
[2023-12-25] MEDS: Ondansetron 4 MG Tab.DIS PO ONE (23:43)
[2023-12-25 23:55] LABS: BAND ABSOLUTE MAN 3.12 K/uL; BAND PERCENT MAN 19 % (5-11); EOSINOPHILS ABSOLUTE MAN 0.98 K/uL (0.00-0.40); EOSINOPHILS PERCENT MAN 6 % (2-4); LYMPHOCYTES ABSOLUTE MAN 2.13 K/uL (0.8-3.3); LYMPHOCYTES PERCENT MAN 13 % (24-44); MICROCYTOSIS FEW; MONOCYTES ABSOLUTE MAN 1.64 K/uL (0.20-0.90); MONOCYTES PERCENT MAN 10 % (2-6); NEUTROPHILS ABSOLUTE MAN 8.53 K/uL (1.0-7.6); SEG NEUTROPHILS PERCENT MAN 52 % (36-66)
[2023-12-25 23:57] LABS: A/G RATIO 0.4 (1.2-2.2); ALANINE AMINOTRANSFERASE,ALT 19 U/L (12-78); ALBUMIN 1.9 g/dL (3.4-5.0); ALKALINE PHOSPHATASE 64 U/L (46-116); ASPARTATE AMNIOTRANSFERASE,AST 17 U/L (15-37); BILIRUBIN TOTAL 0.3 mg/dL (0.2-1.0); BLOOD UREA NITROGEN,BUN 20 mg/dL (7-18); CALCIUM 8.6 mg/dL (8.5-10.1); CARBON DIOXIDE,CO2 28 mmol/L (21-32); CHLORIDE,CL 88 mmol/L (100-108); CREATININE 0.9 mg/dL (0.6-1.0); ESTIMATED GFR 68 mL/min (>60); GLUCOSE RANDOM 203 mg/dL (74-106); PROTEIN TOTAL,TP 6.9 g/dL (6.4-8.2); SODIUM,NA 124 mmol/L (140-148)
[2023-12-25 23:58] LABS: ANION GAP 10.5 mmol/L (5.0-14.0); POTASSIUM,K 2.5 mmol/L (3.6-5.2)
[2023-12-26 00:04] LABS: LACTIC ACID 1.1 mmol/L (0.4-2.0)
[2023-12-26] MEDS: Iopamidol 612 MG/ML 100 ML Bottle IV STA (01:00)
[2023-12-26] MEDS: Sodium Chloride 0.9% 80 ML IV STA (01:01)
[2023-12-26] MEDS: NS + KCl 20mEq/L 1,000 ML IV SCH (01:18)
[2023-12-26] MEDS: Tranexamic Acid 1,000 MG/10 ML Vial IVPUSH ONE (02:17)
[2023-12-26] MEDS ORDERED: Piperacillin/Tazobactam 3.375 GM in Sodium Chloride 0.9% 50 ML IV ONE (02:32)
[2023-12-26] MEDS: Pantoprazole 40 MG Vial IVPUSH ONE (02:38)
[2023-12-26 03:41] VITALS: BP 119/61; PULSE 103
[2023-12-26] MEDS: Piperacillin/Tazobactam 4.5 GM AdvVial ONE (03:54)
[2023-12-26] MEDS: Sodium Chloride 0.9% 100 ML ONE (03:54)
[2023-12-26] MEDS: Piperacillin/Tazobactam/Dext 100 ML IV ONE (03:55)
[2023-12-26] MEDS: Piperacillin/Tazobactam 4.5 GM in Sodium Chloride 0.9% 100 ML IV ONE (04:21)
== END 2023-12-26 04:31 | disposition other institution (70) ==
LOC: JP.ED 22:08
DX: K92.2 Gastrointestinal hemorrhage, unspecified (principal); I10 Essential (primary) hypertension; E78.00 Pure hypercholesterolemia, unspecified; E11.9 Type 2 diabetes mellitus without complications; Z79.82 Long term (current) use of aspirin; Z79.84 Long term (current) use of oral hypoglycemic drugs; Z79.899 Other long term (current) drug therapy; Z90.49 Acquired absence of other specified parts of digestive tract; Z90.710 Acquired absence of both cervix and uterus
CPT/HCPCS: 36415; 36430; 74177; 80053; 83605; 83690; 85018; 85025; 86850; 86900; 86901; 86920; 86922; 87040; 96361; 96365; 96366; 96375; 99285; J2470; J2543; J3480; J3490; J7030; P9016; Q0162; Q9967; U0002

== ENCOUNTER 2024-01-02 10:41 | Inpatient (IN) | payer MEDICARE, OTHER ==
[2024-01-02 11:56] LABS: HEMATOCRIT 29.6 % (34.3-46.0); HEMOGLOBIN 10.2 g/dL (11.2-15.5); MEAN CORPUSCULAR HEMOGLOBIN 27.3 pg (31.6-35.5); MEAN CORPUSCULAR HGB CONC 34.5 g/dL (31.6-35.5); MEAN CORPUSCULAR VOLUME 79.1 fL (81.4-99.0); PLATELET COUNT,PLT 472 K/uL (130-375); RED BLOOD CELL COUNT 3.74 M/uL (3.77-5.24); WHITE BLOOD CELL COUNT,WBC 19.8 K/uL (3.2-11.0)
[2024-01-02 12:11] LABS: CALCIUM 8.2 mg/dL (8.5-10.1); EST CRCL DRUG DOSING (CG) 38.37 mL/min
[2024-01-02 12:16] LABS: BAND ABSOLUTE MAN 0.99 K/uL; BAND PERCENT MAN 5 % (5-11); EOSINOPHILS ABSOLUTE MAN 2.57 K/uL (0.00-0.40); EOSINOPHILS PERCENT MAN 13 % (2-4); LYMPHOCYTES ABSOLUTE MAN 2.57 K/uL (0.8-3.3); LYMPHOCYTES PERCENT MAN 13 % (24-44); MONOCYTES ABSOLUTE MAN 1.58 K/uL (0.20-0.90); MONOCYTES PERCENT MAN 8 % (2-6); NEUTROPHILS ABSOLUTE MAN 12.08 K/uL (1.0-7.6); SEG NEUTROPHILS PERCENT MAN 61 % (36-66)
[2024-01-02 12:19] LABS: ANION GAP 11.3 mmol/L (5.0-14.0); POTASSIUM,K 2.3 mmol/L (3.6-5.2)
[2024-01-02] MEDS: Sodium Chloride 0.9% 10 ML Syringe FLUSH PRN (12:20)
[2024-01-02] MEDS: Potassium Chloride 20 MEQ Tab.ER PO ONE ×2 (13:06→21:23)
[2024-01-02] MEDS: Potassium Chloride 20 MEQ in Premix Bag 1 BAG IV ONE (13:07)
[2024-01-02] MEDS ORDERED: Ondansetron 4 MG/2 ML SDV IV PRN (15:20)
[2024-01-02] MEDS ORDERED: Sennosides/Docusate Sodium 50-8.6 MG Tab PO PRN (15:20)
[2024-01-02] MEDS ORDERED: Acetaminophen 325 MG Tab PO PRN (15:20)
[2024-01-02] MEDS ORDERED: Magnesium Hydroxide 400 MG/5 ML Susp 30 ML Cup PO PRN (15:20)
[2024-01-02] MEDS: NS + KCl 20mEq/L 1,000 ML IV SCH (15:55)
[2024-01-02] MEDS: Magnesium Sulfate/Water 2 GM in Premix Bag 1 BAG IV SCH (15:56)
[2024-01-02] MEDS: Insulin Lispro 100 Unit/ML 3 ML KwikPen SUBCUT SCH (17:27)
[2024-01-02] MEDS: atorvaSTATin 20 MG Tab PO SCH (21:16)
[2024-01-02] MEDS: Lactobacillus Rhamnosus GG (Probiotic) Cap PO SCH (21:16)
[2024-01-02] MEDS: Metoprolol Tartrate 50 MG Tab PO SCH (21:16)
[2024-01-02] MEDS: Melatonin 3 MG Tab PO PRN (21:23)
[2024-01-02] MEDS: Insulin Glargine,Human Rec. Analog 100 Units/ML 3 ML Pen SUBCUT SCH (21:40)
[2024-01-03 06:45] LABS: HEMATOCRIT 30.6 % (34.3-46.0); HEMOGLOBIN 10.5 g/dL (11.2-15.5); MEAN CORPUSCULAR HEMOGLOBIN 27.3 pg (31.6-35.5); MEAN CORPUSCULAR HGB CONC 34.3 g/dL (31.6-35.5); MEAN CORPUSCULAR VOLUME 79.5 fL (81.4-99.0); RED BLOOD CELL COUNT 3.85 M/uL (3.77-5.24); WHITE BLOOD CELL COUNT,WBC 15.9 K/uL (3.2-11.0)
[2024-01-03 07:33] LABS: IRON,FE 14 ug/dL (50-170); PERCENT FE SATURATION 9 % (20-55); TOTAL IRON BINDING CAPACITY 156 ug/dl (250-450)
[2024-01-03] MEDS: Pantoprazole 40 MG Tab.CR PO SCH (07:38)
[2024-01-03] MEDS: predniSONE 20 MG Tab PO SCH (07:39)
[2024-01-03 07:48] LABS: C-REACTIVE PROTEIN 10.59 mg/dL (<0.50); CALCIUM 8.2 mg/dL (8.5-10.1); CREATININE 0.8 mg/dL (0.6-1.0); EST CRCL DRUG DOSING (CG) 47.97 mL/min; POTASSIUM,K 3.9 mmol/L (3.6-5.2)
[2024-01-03 07:51] LABS: ANION GAP 10.9 mmol/L (5.0-14.0)
[2024-01-03] MEDS: Aspirin 81 MG Tab.EC PO SCH (08:23)
[2024-01-03] MEDS: Sodium Ferric Gluconate Cmplex 250 MG in Sodium Chloride 0.9% 100 ML IV ONE (14:17)
[2024-01-03] MEDS: Loperamide 2 MG Cap PO PRN (16:45)
[2024-01-03] MEDS: Insulin Glargine,Human Rec. Analog 100 Units/ML 3 ML Pen SUBCUT SCH (20:16)
[2024-01-04 06:01] LABS: HEMATOCRIT 31.1 % (34.3-46.0); HEMOGLOBIN 10.6 g/dL (11.2-15.5); MEAN CORPUSCULAR HGB CONC 34.1 g/dL (31.6-35.5); MEAN CORPUSCULAR VOLUME 79.3 fL (81.4-99.0); PLATELET COUNT,PLT 479 K/uL (130-375); RED BLOOD CELL COUNT 3.92 M/uL (3.77-5.24); WHITE BLOOD CELL COUNT,WBC 14.9 K/uL (3.2-11.0)
[2024-01-04 06:25] LABS: CALCIUM 8.5 mg/dL (8.5-10.1); CREATININE 0.9 mg/dL (0.6-1.0); EST CRCL DRUG DOSING (CG) 42.64 mL/min
[2024-01-04 06:51] LABS: ANION GAP 7.8 mmol/L (5.0-14.0); POTASSIUM,K 2.8 mmol/L (3.6-5.2)
[2024-01-04 06:54] LABS: BASOPHILS ABSOLUTE MAN 3.87 K/uL (0.00-0.10); BASOPHILS PERCENT MAN 26 % (0-1); EOSINOPHILS ABSOLUTE MAN 0.89 K/uL (0.00-0.40); EOSINOPHILS PERCENT MAN 6 % (2-4); LYMPHOCYTES ABSOLUTE MAN 0.89 K/uL (0.8-3.3); LYMPHOCYTES PERCENT MAN 6 % (24-44); MONOCYTES ABSOLUTE MAN 0.75 K/uL (0.20-0.90); MONOCYTES PERCENT MAN 5 % (2-6); NEUTROPHILS ABSOLUTE MAN 8.49 K/uL (1.0-7.6); SEG NEUTROPHILS PERCENT MAN 57 % (36-66)
[2024-01-04] MEDS: Ondansetron 4 MG Tab.DIS PO PRN (07:34)
[2024-01-04] MEDS: Potassium Chloride 20 MEQ Tab.ER PO SCH (09:20)
[2024-01-04] MEDS: Potassium Chloride 10 MEQ in Premix Bag 1 BAG IV SCH (09:21)
[2024-01-05 07:53] LABS: HEMATOCRIT 29.4 % (34.3-46.0); HEMOGLOBIN 10.1 g/dL (11.2-15.5); MEAN CORPUSCULAR HEMOGLOBIN 27.2 pg (31.6-35.5); MEAN CORPUSCULAR HGB CONC 34.4 g/dL (31.6-35.5); RED BLOOD CELL COUNT 3.72 M/uL (3.77-5.24); WHITE BLOOD CELL COUNT,WBC 18.2 K/uL (3.2-11.0)
[2024-01-05 08:14] LABS: A/G RATIO 0.4 (1.2-2.2); ALANINE AMINOTRANSFERASE,ALT 16 U/L (12-78); ALBUMIN 1.8 g/dL (3.4-5.0); ALKALINE PHOSPHATASE 53 U/L (46-116); ASPARTATE AMNIOTRANSFERASE,AST 14 U/L (15-37); BILIRUBIN TOTAL 0.3 mg/dL (0.2-1.0); BLOOD UREA NITROGEN,BUN 8 mg/dL (7-18); CALCIUM 8.6 mg/dL (8.5-10.1); CARBON DIOXIDE,CO2 27 mmol/L (21-32); CHLORIDE,CL 96 mmol/L (100-108); CREATININE 0.9 mg/dL (0.6-1.0); EST CRCL DRUG DOSING (CG) 42.64 mL/min; ESTIMATED GFR 68 mL/min (>60); GLUCOSE RANDOM 68 mg/dL (74-106); POTASSIUM,K 3.3 mmol/L (3.6-5.2); PROTEIN TOTAL,TP 6.4 g/dL (6.4-8.2); SODIUM,NA 132 mmol/L (140-148)
[2024-01-05 08:15] LABS: ANION GAP 12.3 mmol/L (5.0-14.0)
[2024-01-05] MEDS: Potassium Chloride 10 MEQ in Premix Bag 1 BAG IV SCH (09:06)
[2024-01-05] MEDS: Ciprofloxacin in D5W 400 MG in Premix Bag 1 BAG IV SCH (13:47)
[2024-01-05] MEDS: metroNIDAZOLE/Normal Saline 500 MG in Premix Bag 1 BAG IV SCH (14:52)
[2024-01-06 05:30] LABS: HEMATOCRIT 26.4 % (34.3-46.0); MEAN CORPUSCULAR HGB CONC 34.1 g/dL (31.6-35.5); MEAN CORPUSCULAR VOLUME 79.3 fL (81.4-99.0); RED BLOOD CELL COUNT 3.33 M/uL (3.77-5.24); WHITE BLOOD CELL COUNT,WBC 12.7 K/uL (3.2-11.0)
[2024-01-06 05:58] LABS: A/G RATIO 0.4 (1.2-2.2); ALANINE AMINOTRANSFERASE,ALT 15 U/L (12-78); ALBUMIN 1.5 g/dL (3.4-5.0); ALKALINE PHOSPHATASE 48 U/L (46-116); ANION GAP 12.9 mmol/L (5.0-14.0); ASPARTATE AMNIOTRANSFERASE,AST 10 U/L (15-37); BILIRUBIN TOTAL 0.3 mg/dL (0.2-1.0); BLOOD UREA NITROGEN,BUN 9 mg/dL (7-18); CALCIUM 8.3 mg/dL (8.5-10.1); CARBON DIOXIDE,CO2 25 mmol/L (21-32); CHLORIDE,CL 98 mmol/L (100-108); CREATININE 0.9 mg/dL (0.6-1.0); EST CRCL DRUG DOSING (CG) 42.64 mL/min; ESTIMATED GFR 68 mL/min (>60); GLUCOSE RANDOM 149 mg/dL (74-106); POTASSIUM,K 3.9 mmol/L (3.6-5.2); PROTEIN TOTAL,TP 5.7 g/dL (6.4-8.2); SODIUM,NA 132 mmol/L (140-148)
[2024-01-06] MEDS: Furosemide 20 MG/2 ML VIAL IVPUSH ONE (09:48)
[2024-01-07] MEDS: metroNIDAZOLE 250 MG Tab PO SCH (02:15)
[2024-01-07 05:15] LABS: HEMATOCRIT 28.3 % (34.3-46.0); HEMOGLOBIN 9.4 g/dL (11.2-15.5); MEAN CORPUSCULAR HEMOGLOBIN 26.2 pg (31.6-35.5); MEAN CORPUSCULAR HGB CONC 33.2 g/dL (31.6-35.5); MEAN CORPUSCULAR VOLUME 78.8 fL (81.4-99.0); PLATELET COUNT,PLT 434 K/uL (130-375); RED BLOOD CELL COUNT 3.59 M/uL (3.77-5.24); WHITE BLOOD CELL COUNT,WBC 13.7 K/uL (3.2-11.0)
[2024-01-07 05:39] LABS: A/G RATIO 0.4 (1.2-2.2); ALANINE AMINOTRANSFERASE,ALT 15 U/L (12-78); ALBUMIN 1.6 g/dL (3.4-5.0); ALKALINE PHOSPHATASE 50 U/L (46-116); ASPARTATE AMNIOTRANSFERASE,AST 11 U/L (15-37); BILIRUBIN TOTAL 0.3 mg/dL (0.2-1.0); BLOOD UREA NITROGEN,BUN 13 mg/dL (7-18); CALCIUM 8.3 mg/dL (8.5-10.1); CARBON DIOXIDE,CO2 26 mmol/L (21-32); CHLORIDE,CL 97 mmol/L (100-108); CREATININE 0.9 mg/dL (0.6-1.0); EST CRCL DRUG DOSING (CG) 42.64 mL/min; ESTIMATED GFR 68 mL/min (>60); GLUCOSE RANDOM 92 mg/dL (74-106); POTASSIUM,K 3.6 mmol/L (3.6-5.2); PROTEIN TOTAL,TP 5.9 g/dL (6.4-8.2); SODIUM,NA 131 mmol/L (140-148)
[2024-01-07 05:43] LABS: ANION GAP 11.6 mmol/L (5.0-14.0); BAND ABSOLUTE MAN 3.56 K/uL; BAND PERCENT MAN 26 % (5-11); EOSINOPHILS ABSOLUTE MAN 0.69 K/uL (0.00-0.40); EOSINOPHILS PERCENT MAN 5 % (2-4); LYMPHOCYTES ABSOLUTE MAN 1.92 K/uL (0.8-3.3); LYMPHOCYTES PERCENT MAN 14 % (24-44); MONOCYTES ABSOLUTE MAN 1.51 K/uL (0.20-0.90); MONOCYTES PERCENT MAN 11 % (2-6); NEUTROPHILS ABSOLUTE MAN 6.03 K/uL (1.0-7.6); SEG NEUTROPHILS PERCENT MAN 44 % (36-66)
[2024-01-07] MEDS: Ciprofloxacin 500 MG Tab PO SCH (08:59)
[2024-01-07 09:04] VITALS: BP 110/45; PULSE 101
== END 2024-01-07 11:10 | disposition home or self-care (01) | DRG 386 ==
LOC: JP.ED 10:41 → JP.MS 14:08
PROVIDERS: ADMIT Internal Medicine; ATTEND Internal Medicine
DX: K51.011 Ulcerative (chronic) pancolitis with rectal bleeding (principal); K92.1 Melena; E87.1 Hypo-osmolality and hyponatremia; E87.6 Hypokalemia; E83.42 Hypomagnesemia; I25.10 Atherosclerotic heart disease of native coronary artery without angina pectoris; E11.9 Type 2 diabetes mellitus without complications; Z90.49 Acquired absence of other specified parts of digestive tract; M19.90 Unspecified osteoarthritis, unspecified site; E78.00 Pure hypercholesterolemia, unspecified; I25.2 Old myocardial infarction; I10 Essential (primary) hypertension; H54.7 Unspecified visual loss; R60.0 Localized edema; Z87.891 Personal history of nicotine dependence; Z79.4 Long term (current) use of insulin; Z95.1 Presence of aortocoronary bypass graft; Z79.82 Long term (current) use of aspirin; Z79.52 Long term (current) use of systemic steroids; Z79.899 Other long term (current) drug therapy; Z86.73 Personal history of transient ischemic attack (TIA), and cerebral infarction without residual deficits; Z98.49 Cataract extraction status, unspecified eye; Z98.890 Other specified postprocedural states; Z86.010 Personal history of colon polyps; Z90.710 Acquired absence of both cervix and uterus
CPT/HCPCS: 36415; 80048; 83735; 85025; 96365; 99285; A9270; J3480; J3490; 80053; 82728; 82947; 83550; 84132; 85027; 86140; 87493; 99222; 99231; 99232; 99239; J0744; J1815; J1815-GY; J1836; J1940; J2916; J3475; J7512; Q0162

== ENCOUNTER 2024-01-12 12:10 | Inpatient (IN) | payer MEDICARE, OTHER ==
[2024-01-12 14:53] LABS: HEMOGLOBIN 9.2 g/dL (11.2-15.5); MEAN CORPUSCULAR HEMOGLOBIN 26.6 pg (31.6-35.5); MEAN CORPUSCULAR HGB CONC 34.1 g/dL (31.6-35.5); PLATELET COUNT,PLT 319 K/uL (130-375); RED BLOOD CELL COUNT 3.46 M/uL (3.77-5.24); WHITE BLOOD CELL COUNT,WBC 12.1 K/uL (3.2-11.0)
[2024-01-12 15:07] LABS: BAND ABSOLUTE MAN 0.97 K/uL; BAND PERCENT MAN 8 % (5-11); EOSINOPHILS ABSOLUTE MAN 0.24 K/uL (0.00-0.40); EOSINOPHILS PERCENT MAN 2 % (2-4); LYMPHOCYTES ABSOLUTE MAN 0.97 K/uL (0.8-3.3); LYMPHOCYTES PERCENT MAN 8 % (24-44); METAMYELOCYTE ABSOLUTE MAN 0.36 K/uL; METAMYELOCYTE PERCENT MAN 3 %; MONOCYTES ABSOLUTE MAN 0.36 K/uL (0.20-0.90); MONOCYTES PERCENT MAN 3 % (2-6); SEG NEUTROPHILS PERCENT MAN 76 % (36-66)
[2024-01-12 15:14] LABS: A/G RATIO 0.4 (1.2-2.2); ALANINE AMINOTRANSFERASE,ALT 9 U/L (12-78); ALBUMIN 1.6 g/dL (3.4-5.0); ALKALINE PHOSPHATASE 48 U/L (46-116); ANION GAP 10.1 mmol/L (5.0-14.0); ASPARTATE AMNIOTRANSFERASE,AST 8 U/L (15-37); BILIRUBIN TOTAL 0.3 mg/dL (0.2-1.0); BLOOD UREA NITROGEN,BUN 13 mg/dL (7-18); CALCIUM 8.2 mg/dL (8.5-10.1); CARBON DIOXIDE,CO2 27 mmol/L (21-32); CHLORIDE,CL 88 mmol/L (100-108); EST CRCL DRUG DOSING (CG) 38.37 mL/min; ESTIMATED GFR 60 mL/min (>60); GLUCOSE RANDOM 271 mg/dL (74-106); POTASSIUM,K 4.1 mmol/L (3.6-5.2); PROTEIN TOTAL,TP 5.8 g/dL (6.4-8.2); SODIUM,NA 121 mmol/L (140-148)
[2024-01-12] MEDS: Sodium Chloride 0.9% 1,000 ML IV ONE (18:13)
[2024-01-12] MEDS: methylPREDNISolone Sodium Succinate 125 MG/2 ML SDV IVPUSH ONE (18:14)
[2024-01-12] MEDS: Sodium Chloride 0.9% 10 ML Syringe FLUSH PRN (18:14)
[2024-01-12] MEDS ORDERED: Ondansetron 4 MG/2 ML SDV IV PRN (19:12)
[2024-01-12] MEDS ORDERED: Acetaminophen 325 MG Tab PO PRN (19:12)
[2024-01-12] MEDS ORDERED: Ondansetron 4 MG Tab.DIS PO PRN (19:12)
[2024-01-12] MEDS: NS + KCl 20mEq/L 1,000 ML IV SCH (21:23)
[2024-01-12] MEDS: Lactobacillus Rhamnosus GG (Probiotic) Cap PO SCH (21:25)
[2024-01-12] MEDS: atorvaSTATin 20 MG Tab PO SCH (21:25)
[2024-01-12] MEDS: Insulin Lispro 100 Unit/ML 3 ML KwikPen SUBCUT SCH (21:29)
[2024-01-12] MEDS: Metoprolol Tartrate 50 MG Tab PO SCH (21:30)
[2024-01-12] MEDS: methylPREDNISolone Sodium Succinate 125 MG/2 ML SDV IVPUSH SCH (23:54)
[2024-01-13] MEDS: Loperamide 2 MG Cap PO PRN
[2024-01-13 04:40] LABS: HEMATOCRIT 24.6 % (34.3-46.0); HEMOGLOBIN 8.4 g/dL (11.2-15.5); MEAN CORPUSCULAR HEMOGLOBIN 26.7 pg (31.6-35.5); MEAN CORPUSCULAR HGB CONC 34.1 g/dL (31.6-35.5); MEAN CORPUSCULAR VOLUME 78.1 fL (81.4-99.0); RED BLOOD CELL COUNT 3.15 M/uL (3.77-5.24); WHITE BLOOD CELL COUNT,WBC 8.7 K/uL (3.2-11.0)
[2024-01-13 05:19] LABS: CALCIUM 8.2 mg/dL (8.5-10.1); CREATININE 0.9 mg/dL (0.6-1.0); EST CRCL DRUG DOSING (CG) 42.64 mL/min; MAGNESIUM 1.4 mg/dL (1.8-2.4); POTASSIUM,K 5.3 mmol/L (3.6-5.2)
[2024-01-13 05:21] LABS: IRON,FE 25 ug/dL (50-170); PERCENT FE SATURATION 21 % (20-55); TOTAL IRON BINDING CAPACITY 117 ug/dl (250-450)
[2024-01-13 05:24] LABS: ANION GAP 11.3 mmol/L (5.0-14.0)
[2024-01-13] MEDS: Pantoprazole 40 MG Tab.CR PO SCH (07:43)
[2024-01-13] MEDS: metFORMIN 500 MG Tab PO SCH (07:44)
[2024-01-13] MEDS: Insulin Glargine,Human Rec. Analog 100 Units/ML 3 ML Pen SUBCUT SCH (08:42)
[2024-01-13] MEDS: Potassium Chloride 20 MEQ Tab.ER PO SCH (08:51)
[2024-01-13] MEDS: Magnesium Sulfate/Water 2 GM in Premix Bag 1 BAG IV SCH (11:00)
[2024-01-13] MEDS: Sodium Ferric Gluconate Cmplex 250 MG in Sodium Chloride 0.9% 100 ML IV ONE (13:25)
[2024-01-13] MEDS: Insulin Lispro 100 Unit/ML 3 ML KwikPen SUBCUT SCH (17:26)
[2024-01-14 04:56] LABS: HEMATOCRIT 25.3 % (34.3-46.0); HEMOGLOBIN 8.7 g/dL (11.2-15.5); MEAN CORPUSCULAR HEMOGLOBIN 26.8 pg (31.6-35.5); MEAN CORPUSCULAR HGB CONC 34.4 g/dL (31.6-35.5); MEAN CORPUSCULAR VOLUME 77.8 fL (81.4-99.0); RED BLOOD CELL COUNT 3.25 M/uL (3.77-5.24); WHITE BLOOD CELL COUNT,WBC 11.3 K/uL (3.2-11.0)
[2024-01-14 05:18] LABS: CALCIUM 8.3 mg/dL (8.5-10.1); CREATININE 0.9 mg/dL (0.6-1.0); EST CRCL DRUG DOSING (CG) 42.68 mL/min; POTASSIUM,K 4.5 mmol/L (3.6-5.2)
[2024-01-14 05:27] LABS: ANION GAP 11.5 mmol/L (5.0-14.0)
[2024-01-14] MEDS: metFORMIN 500 MG Tab PO SCH (08:05)
[2024-01-14] MEDS: Insulin Glargine,Human Rec. Analog 100 Units/ML 3 ML Pen SUBCUT SCH (09:00)
[2024-01-14] MEDS: predniSONE 20 MG Tab PO ONE (13:28)
[2024-01-14] MEDS: Melatonin 3 MG Tab PO SCH (21:18)
[2024-01-15 04:40] LABS: HEMOGLOBIN 8.9 g/dL (11.2-15.5); MEAN CORPUSCULAR HEMOGLOBIN 26.8 pg (31.6-35.5); MEAN CORPUSCULAR HGB CONC 34.2 g/dL (31.6-35.5); MEAN CORPUSCULAR VOLUME 78.3 fL (81.4-99.0); RED BLOOD CELL COUNT 3.32 M/uL (3.77-5.24); WHITE BLOOD CELL COUNT,WBC 12.8 K/uL (3.2-11.0)
[2024-01-15 05:02] LABS: C-REACTIVE PROTEIN 2.85 mg/dL (<0.50); CALCIUM 8.5 mg/dL (8.5-10.1); CREATININE 0.9 mg/dL (0.6-1.0); EST CRCL DRUG DOSING (CG) 42.68 mL/min; POTASSIUM,K 3.7 mmol/L (3.6-5.2)
[2024-01-15 05:15] LABS: ANION GAP 10.7 mmol/L (5.0-14.0)
[2024-01-15] MEDS: predniSONE 20 MG Tab PO SCH (07:25)
[2024-01-15 11:01] VITALS: BP 106/54; PULSE 80
== END 2024-01-15 11:10 | disposition home or self-care (01) | DRG 385 ==
LOC: JP.ED 12:10 → JP.MS 17:09
PROVIDERS: ADMIT Internal Medicine; ATTEND Internal Medicine
DX: K51.011 Ulcerative (chronic) pancolitis with rectal bleeding (principal); E43 Unspecified severe protein-calorie malnutrition; D62 Acute posthemorrhagic anemia; E87.1 Hypo-osmolality and hyponatremia; K92.1 Melena; H54.7 Unspecified visual loss; E78.00 Pure hypercholesterolemia, unspecified; I10 Essential (primary) hypertension; M19.90 Unspecified osteoarthritis, unspecified site; E11.9 Type 2 diabetes mellitus without complications; I25.10 Atherosclerotic heart disease of native coronary artery without angina pectoris; E86.0 Dehydration; D72.829 Elevated white blood cell count, unspecified; Z79.899 Other long term (current) drug therapy; Z79.2 Long term (current) use of antibiotics; Z79.4 Long term (current) use of insulin; Z79.84 Long term (current) use of oral hypoglycemic drugs; Z86.010 Personal history of colon polyps; Z86.73 Personal history of transient ischemic attack (TIA), and cerebral infarction without residual deficits; Z87.81 Personal history of (healed) traumatic fracture; Z87.891 Personal history of nicotine dependence; Z90.710 Acquired absence of both cervix and uterus; Z68.25 Body mass index [BMI] 25.0-25.9, adult
CPT/HCPCS: 36415; 80048; 80053; 82947; 83550; 83735; 85025; 85027; 86140; 99222; 99232; 99238; 99284; A9270-GY; J1815; J1815-GY; J2916; J2919; J3475; J3480; J3490; J7030; J7512